=== PATIENT | male | born 1960 | race Two or more races ===

== ENCOUNTER 2019-06-29 10:04 | Emergency (ER) | payer BC, OTHER ==
[~2019-06-29] VITALS: Ht 180.3 cm; Wt 86.2 kg
[2019-06-29 10:25] VITALS: BP 143/73
== END 2019-06-29 11:19 | disposition home or self-care (01) ==
LOC: ER 10:04
DX: G62.9 Polyneuropathy, unspecified (principal); I10 Essential (primary) hypertension